=== PATIENT | female | born 1995 | race Caucasian/White ===

== ENCOUNTER 2017-09-03 21:35 | Emergency (ER) | payer OTHER ==
[2017-09-03 23:14] VITALS: BP 123/99
== END 2017-09-03 23:14 | disposition home or self-care (01) ==
LOC: ED 21:35
DX: M25.561 Pain in right knee (principal)

== ENCOUNTER 2018-06-08 22:15 | Emergency (ER) | payer OTHER ==
[~2018-06-08] VITALS: Ht 157.5 cm; Wt 79.8 kg
[2018-06-08 22:19] VITALS: Ht 157.5 cm; Wt 79.8 kg
[2018-06-09 01:05] VITALS: BP 124/76
== END 2018-06-09 01:05 | disposition home or self-care (01) ==
LOC: ED 22:15
DX: T63.441A Toxic effect of venom of bees, accidental (unintentional), initial encounter (principal); L03.116 Cellulitis of left lower limb; Y92.89 Other specified places as the place of occurrence of the external cause
CPT/HCPCS: J7512; Q0163

== ENCOUNTER 2018-12-13 11:26 | Emergency (ER) | payer OTHER ==
[~2018-12-13] VITALS: Ht 157.5 cm; Wt 81.0 kg
[2018-12-13 11:30] VITALS: BP 121/62; Ht 157.5 cm; Wt 81.0 kg
[2018-12-13 12:19] LABS: BASOPHIL % 0.1 % (0-2); PLATELET COUNT 317 x10^3mcL (130-400); RED CELL DISTRIBUTION WIDTH 13.5 % (11.5-14.5)
[2018-12-13 12:26] LABS: CALCIUM 9.1 mg/dL (8.5-10.1); CARBON DIOXIDE 26.1 mmol/L (21-32); CHLORIDE SERUM 103 mmol/L (98-107); CREATININE SERUM 0.5 mg/dL (0.6-1.0); GFR1 > 60 mL/min; GLUCOSE SERUM 96 mg/dL (74-106); POTASSIUM SERUM 4.1 mmol/L (3.5-5.1); SODIUM SERUM 137 mmol/L (136-145)
== END 2018-12-13 12:42 | disposition home or self-care (01) ==
LOC: ED 11:26
PROVIDERS: Emergency Medicine
DX: O26.891 Other specified pregnancy related conditions, first trimester (principal); R42 Dizziness and giddiness; R11.2 Nausea with vomiting, unspecified; Z3A.13 13 weeks gestation of pregnancy
CPT/HCPCS: 36415